=== PATIENT | female | born 1990 | race Caucasian/White ===

== ENCOUNTER → 2016-08-16 | Outpatient (CLI) | payer BC ==
[2016-08-16 12:22] VITALS: BP 114/42
[2016-08-16 12:36] VITALS: BP 141/90
--- NOTE | 2016-08-16 14:09 | NUR ---
Report called to Maria Del Carmen De Santiago APRN at [facility]. Pt reports feeling less nauseous and has less acid reflux. She has kept down an 8 oz cup of ice chips with some water. She denied the need to try 7up or sprite. Reports her stomach feels empty and she feels hungry. Maria Del Carmen reported she received the faxed copy of her labs and they were all fine. She asked me to reinforce the diet restrictions per orders and to let pt know that a script for PO Zofran was sent to [facility]. Instructed pt to follow clear liquid diet for 24 hours, followed by BRAT diet for 24 hours and finally a bland diet for 24 hours. Pt stated she understood. Also informed her of script sent to [facility]. Pt ambulatory to personal vehicle.
[2016-08-16 14:20] VITALS: BP 110/60
== END ==
LOC: AMSURD 11:48
DX: E86.0 Dehydration (principal); R11.2 Nausea with vomiting, unspecified; R19.7 Diarrhea, unspecified
CPT/HCPCS: C9113; J2405; J7030